=== PATIENT | female | born 1945 | race Caucasian/White ===

== ENCOUNTER → 2018-04-06 21:29 | Outpatient (CLI) | payer MEDICARE, BC ==
[2015-10-12 12:41] VITALS: BMI 33.8
[2018-04-07 00:28] LABS: INR 1.44 (0.85-1.17)
== END | disposition home or self-care (01) ==
LOC: D.LABREF 21:29
PROVIDERS: Internal Medicine
DX: I48.91 Unspecified atrial fibrillation (principal); Z96.651 Presence of right artificial knee joint

== ENCOUNTER → 2019-04-04 12:29 | Outpatient (CLI) | payer MEDICARE, BC ==
[2015-10-12 12:41] VITALS: BMI 33.8
[2019-04-04 13:36] LABS: INR 2.53 (0.85-1.17); PROTIME 26.6 SECONDS (11.6-15.0)
== END | disposition home or self-care (01) ==
LOC: D.LABREF 12:29
PROVIDERS: ATTEND Internal Medicine
DX: I48.20 Chronic atrial fibrillation, unspecified (principal)